=== PATIENT | female | born 1940 | race Caucasian/White ===

== ENCOUNTER 2022-11-05 05:19 | Emergency (ER) | payer MEDICARE, SELFPAY ==
[2022-11-05 05:25] VITALS: BP 152/63; PULSE 77; RESP 16; TEMP 36.7; O2SAT 97; BMI 27.7
--- NOTE | 2022-11-05 06:01 | ED.GENADULT ---
HPI - General Adult General Chief complaint: Extremity Problem Stated complaint: tick bite Time Seen by Provider: 11/05/22 05:24 Source: patient and family () Mode of arrival: ambulatory History of Present Illness HPI narrative: 82-year-old female presents after having a tick removed, it is a deer tick, last night but states she thinks that the tick may have become imbedded since . She denies any fevers or chills. Related Data Previous Rx's Medication Instructions Recorded doxycycline monohydrate 100 mg 100 mg PO BID 21 days #42 caps 11/05/22 capsule Allergies Allergy/AdvReac Type Severity Reaction Status Date / Time No Known Allergies Allergy Verified 11/05/22 05:57 [No Known Allergies*] Review of Systems Review of Systems: Pertinent positives and negatives as stated in HPI [facility] Past Medical History Source: nursing notes reviewed Physical Exam ED Vital Signs: Vital Signs - 24 hr 11/05/22 05:25 Temperature 98.1 F Pulse Rate 77 Respiratory Rate 16 Blood Pressure 152/63 H Pulse Oximetry 97 Oxygen Delivery Method Room Air BMI result Body Mass Index 27.7 VITAL SIGNS: Reviewed. GENERAL: Well developed, well nourished, in no acute distress. HEAD: Normocephalic/atraumatic EYES: PERRLA, EOMI LUNGS: Normal breath sounds. No adventitious sounds or accessory muscle use. SpO2<97> CARDIOVASCULAR: Regular rate and rhythm without noted murmurs ABDOMEN: Soft, non-tender, non-distended with bowel sounds. MUSCULOSKELETAL: No tenderness, deformities, or effusions noted on gross inspection. EXTREMITIES: No cyanosis, clubbing or edema. SKIN: Inspection of the skin reveals erythema migrans rash at right popliteal NEUROLOGIC: Alert and oriented x 4. Strength and sensation to light touch were grossly intact x 4. Medical Decision Making Medical Decision Making MDM Narrative: 82-year-old female with tick over 72 hours, was removed last night and has an erythema migrans rash. Evaluation after application of lidocaine demonstrates no further tick parts within the wound. Patient will be started on 21 day treatment with doxycycline. Differential Diagnosis Please see the discussion above Discharge Plan Discharge Clinical Impression: Tick bite Patient Disposition: Home, Self-Care Instructions: Lyme Disease (ED), Tick Bite (ED) Additional Instructions: 1. Resume all home medications as prescribed. 2. Complete the entire course antibiotic as prescribed. 3. Please follow-up with your primary care provider by calling the office on Sunday morning. Return to the ER for any worsening symptoms. Prescriptions: New doxycycline monohydrate 100 mg capsule 100 mg PO BID 21 Days Qty: 42 0RF
[2022-11-05] MEDS: Doxycycline Monohydrate 100 MG CAPSULE PO (06:11)
[2022-11-05] MEDS: Lidocaine HCl 1 % MPF 2 ML VIAL INFILTRATI (06:11)
== END 2022-11-05 06:18 | disposition home or self-care (01) ==
LOC: HO.ED 06:17
PROVIDERS: Emergency Provider Student in an Organized Health Care Education/Training Program
DX: S80.861A Insect bite (nonvenomous), right lower leg, initial encounter (principal); W57.XXXA Bitten or stung by nonvenomous insect and other nonvenomous arthropods, initial encounter; Y93.9 Activity, unspecified; Y92.9 Unspecified place or not applicable; Y99.9 Unspecified external cause status
CPT/HCPCS: 99282

== ENCOUNTER 2025-03-02 08:18 | Outpatient (REF) | payer MEDICARE, SELFPAY ==
--- NOTE | ~2025-03-02 | XR_ITS ---
EXAMINATION: XR CHEST 2 VIEWS HISTORY: R05.9 - Cough, unspecified COMPARISON: There are no prior studies available for comparison. FINDINGS: PA and lateral views of the chest are submitted. The lungs are expanded and clear. There is no pleural effusion, pneumothorax, or pulmonary vascular congestion. The heart is normal in size. There is mild degenerative disc disease of the spine. XR/XR chest 2V IMPRESSION: No acute cardiopulmonary abnormality. Electronically signed by: David Soto MD 03/02/2025 09:41 AM EDT
[2025-03-02 12:37] LABS: Resp Syncy Virus RNA Qual PCR NEGATIVE (Negative); SARS COV2 PCR INHOUSE NEGATIVE (Negative)
== END 2025-03-02 08:19 | disposition home or self-care (01) ==
LOC: HO.HMGCX 08:18
PROVIDERS: Visit Provider Physician Assistant Medical
DX: R09.89 Other specified symptoms and signs involving the circulatory and respiratory systems (principal); J06.9 Acute upper respiratory infection, unspecified; R05.9 Cough, unspecified
CPT/HCPCS: 71046; 87637; 99212

== ENCOUNTER 2025-03-02 08:18 | Outpatient (AMB) | payer MEDICARE, SELFPAY ==
--- OUTSIDE RECORDS SUMMARY | 2025-03-02 08:29 | XMS_ITS | Patient Health Record ---
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 (uncoded) Unknown Allergy Active Reason For Referral No Information Medications Medication SIG (Take, Route, Frequency, Duration) Notes Start Date End Date Status Calcium + D 600 Acti ve Vitamin D3 1999iu Ac tive Multi Vitamin/Minerals 07/30/20242024 Active Problems Problem Type SNOMED Code ICD Code Onset Dates Problem Status W/U Status Risk Notes Problem Irritable bowel syndrome (564.1) Active confirmed Plan Of Treatment No Information Insurance Providers Payer Name Payer Address Payer Phone Subscriber Number Group Number Insured Name Patient Relationship to Insured Coverage Start Date Coverage End Date [facility] [address] [place] [phone] [id number] NATACHA CHOI Self - patient is the insured Medical (General) History Medical History History ICD Code Colonoscopy 04/29/2010 Denies [place],DM,CVA,Lung disease,renal dise ase Surgical History Surgery Date(Month/Year) finger surgery
--- OUTSIDE RECORDS SUMMARY | 2025-03-02 08:29 | XMS_ITS | Patient Health Record ---
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 Name Role Phone Javid Thao MD Primary Care Provider UnavailKaveh Huynh Unavailable [phone] Reason For Referral No Information Medications Medication SIG (Take, Route, Fr equency, Duration) Notes Start Date End Date Status Ocuvite Active aspirin baby Not-Jason ing Multivitamins Orally Active D3-1000 2000 1 capsule Orally Once a day Active Social History Tobacco Use: Social History Observation Description Date Details (start date - stop date) Never Smoker NA - NA Tobacco Use/Smoking Question Answer Notes Are you a: nonsmoker Additional Findings: Tobacco Non-User Current no n-smoker Alcohol Screen Question Answer Notes Did you have a drink containing alcohol in the p ast year? Yes Points 0 Interpretation Negative Tobacco use other than smoking: Question Answer Notes Are you an other tobacco user? 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 Plan Of Treatment Pending Test Test Name Order Date X ray : Foot, right 3V 10/13/2013 X ray : Foot, right 3V 03/07/2018 [id number], Q2824-HSIPR/INJECT, JOINT/BURSA 0 03/07/2018 [id number], J0702- Neuroma/Injection 03/28/20 18 30172, J0702- Neuroma/Injection 03/07/20 18 72910, J0702- Neuroma/Injection 10/14/19 14 03957, J0702- Neuroma/Injection 07/14/20 14 Insurance Providers Payer Name Payer Address Payer Phone Subscriber Number Group Number Insured Name Patient Relationship to Insured Coverage Start Date Coverage End Date [employer] [place] [employer] [facility] [address] [place] [address] [id number] Kelly Parkinson Self - patient is the insured Medical (General) History Medical History History ICD Code Arthritis Cataracts Chicken pox Macular degeneration Measles Mumps Neuralgia - Neuritis Pain in Limb Surgical History Surgery Date(Month/Year) cataract surgery right 03/21/2007 cataract surgery left 04/11/2007 finger surgery lefthand cyst removal mucous 3rd 05/10/2012 Hospitalization History Reason Date(Month/Year) childbirth x3
[2025-03-02 08:41] VITALS: BP 132/70; PULSE 75; O2SAT 96; BMI 26.2
--- NOTE | 2025-03-02 08:41 | MHC.OFFWIV ---
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 neg at home covid test Allergies No Known Allergies (No Known Allergies*) Allergy (Verified 03/02/25 08:43) Do you need a note to return to daycare/school/sports/work: No HPI HPI Comments History of Present Illness Details History - The patient is an 84-year-old female presenting with symptoms of an upper respiratory tract infection. - Symptoms have persisted for 10-12 days, including a cough and clear nasal discharge. - No fever was noted, with a recorded temperature of 98.6?F. - A home COVID-19 test was negative, and initial sore throat symptoms have resolved. - The patient has been using NyQuil and DayQuil without significant improvement. - She denies CP, SOB, abd pain, n/v/d, CARSON, ear pain, dizziness, or weakness. - She did travel on a plane - She has no sick contacts in her home. Physical Exam General: Cooperative, healthy appearing, comfortable and no acute distress Orientation/consciousness: Patient oriented x3 Limitations: No limitations Head: Normal to inspection Ears: Hearing grossly normal bilaterally, external ears normal and TM's normal bilaterally Nose: Normal external nose present, normal nares present, and no nasal discharge present. Face and sinus: Sinuses nontender to palpation. Mouth: Normal oral and palatal mucosa present and moist mucous membranes noted. Throat: Tonsils normal. Uvula is midline. Posterior oropharynx with erythema and no exudates. Eyes: Appearance normal, both eyes and all related structures Neck: Normal visual inspection, full ROM. No lymphadenopathy noted. Respiratory: Clear to auscultation bilaterally. Normal respiratory effort, able to speak in complete sentences. No respiratory distress, not tachypneic, no tripod positioning and no use of accessory muscles. Cardiovascular: Regular rate and rhythm. Normal S1 and S2 Skin: No rashes or lesions noted Patient was informed and verbally consented to the use of an ambient scribe for clinic note documentation during this visit Review of Systems Const All systems reviewed & are unremarkable except as noted in HPI and below Physical Exam Vital Signs: Last Vital Signs Pulse 75 03/02/25 08:41 BP 132/70 03/02/25 08:41 Pulse Ox 96 03/02/25 08:41 Oxygen Delivery Method Room Air 03/02/25 08:41 BMI result Body Mass Index 26.2 Results Reviewed Results Reviewed: Reviewed the CXR in the office and negative Assessment & Plan Assessment & Plan (1) URI with cough and congestion: Code(s): J06.9 - Acute upper respiratory infection, unspecified Plan Most likely URI vs CAP vs covid vs flu vs RSV CXR was negative, likely viral Plan - Conduct a COVID-19, flu, and RSV swab test to exclude viral infections. - Proceed with a chest x-ray to assess for pneumonia. - VSS, pt well appearing - Continue with OTC medications - tylenol or motrin as needed - follow up with PCP Orders: Orders SARS-CoV2/FLU/RSV Today R09.89 - Other specified symptoms and signs involving the circulatory and respiratory systems XR chest 2V Today R05.9 - Cough, unspecified Medications: Discontinued doxycycline monohydrate Discontinued Reason: Patient Completed Course 100 mg PO BID 21 days 42 caps 0RF Coding Level of Care Code Est Pt Level 4 (80514) Diagnoses URI with cough and congestion J06.9
== END 2025-03-02 10:09 | disposition home or self-care (01) ==
PROVIDERS: Visit Provider Physician Assistant Medical
DX: J06.9 Acute upper respiratory infection, unspecified (principal)

== ENCOUNTER → 2025-03-02 09:28 | Outpatient (BNV) | payer MEDICARE, SELFPAY | PROVIDERS: Visit Provider Radiology Diagnostic Radiology | DX: R05.9 Cough, unspecified (principal) | CPT/HCPCS: 71046 ==